=== PATIENT | female | born 1995 | race Caucasian/White ===

== ENCOUNTER 2018-01-15 19:04 | Inpatient (IN) ==
[2018-01-15] MEDS ORDERED: Acetaminophen 325 MG Tablet PO ONE (20:12)
[2018-01-15 21:06] LABS: Baso % (Auto) 0.4 % (0.0-2.0); Eos # (Auto) 0.3 th/mm3 (0.0-0.4); Eos % (Auto) 2.9 % (0.0-4.0); Hematocrit 30.9 % (35.0-46.0); Hemoglobin 10.8 gm/dL (11.6-15.3); Lymph # (Auto) 1.4 th/mm3 (1.0-4.8); Lymph % (Auto) 14.4 % (9.0-44.0); Mean Corpuscular HGB Conc 34.9 % (32.0-36.0); Mean Corpuscular Volume 89.1 fL (80.0-100.0); Mean Platelet Volume 8.2 fL (7.0-11.0); Mono # (Auto) 0.7 th/mm3 (0.0-0.9); Mono % (Auto) 7.1 % (0.0-8.0); Neut # (Auto) 7.4 th/mm3 (1.8-7.7); Neut % (Auto) 75.2 % (16.0-70.0); Platelet Count 200 th/mm3 (150-450); Red Blood Count 3.47 mil/mm3 (4.00-5.30); White Blood Count 9.9 th/mm3 (4.0-11.0)
[2018-01-15 21:34] LABS: Albumin 2.7 g/dL (3.4-5.0); Anion Gap 9 meq/L (5-15); Aspartate Aminotransferase 9 U/L (15-37); Blood Urea Nitrogen 10 mg/dL (7-18); Calcium 8.5 mg/dL (8.5-10.1); Carbon Dioxide 22.8 meq/L (21.0-32.0); Chloride 106 meq/L (98-107); Glomerular Filtration Rate Greater Than 89 mL/min (>89); Glucose,Random 82 mg/dL (74-106); Lipase 161 U/L (73-393); Potassium 3.5 meq/L (3.5-5.1); Sodium 138 meq/L (136-145)
[2018-01-15 21:40] LABS: Alanine Aminotransferase 11 U/L (10-53); Alkaline Phosphatase 100 U/L (45-117); Total Protein 6.6 g/dL (6.4-8.2)
--- NOTE | 2018-01-15 21:49 | US ---
EXAM DATE: 01/15/2018 9:44 PM EST AGE/SEX: 22 years / Female INDICATIONS: RUQ pain. CLINICAL DATA: This is the patient's initial encounter. Patient reports that signs and symptoms have been present for 1 day and indicates a pain score of 4/10. MEDICAL/SURGICAL HISTORY: . Tetralogy of fallot. . Open heart surgery. COMPARISON: OBD, US OB LIMITED W/TV, 12/01/2017. . MEASUREMENTS: Liver:__ 18.6 cm. Common Bile Duct:__ 4mm. FINDINGS: Liver: Normal echotexture without focal lesion or ductal dilatation. Portal Vein: Hepatopedal flow seen in portal vein. Common Duct: No intraluminal mass or stone visualized. Gallbladder: Demonstrates no wall thickening or pericholecystic fluid. No stones visualized. Pancreas: The visualized portions are within normal limits Right Kidney: Severe right-sided hydronephrosis. Other: None. CONCLUSION: 1. Severe right-sided hydronephrosis. 2. No sonographic evidence for cholelithiasis or acute cholecystitis. Electronically signed by: Angel Ch MD 01/15/2018 9:47 PM EST
[2018-01-15 23:49] LABS: Bacteria,Urine Rare /hpf; Bilirubin,Urine Negative (Negative); Clarity,Urine Hazy (Clear); Color,Urine Yellow (Yellw/Straw); Glucose,Urine (UA) Negative (Negative); Leukocyte Esterase,Urine Moderate (Negative); Mucus,Urine Few /lpf (Occasional); Nitrite,Urine Negative (Negative); Specific Gravity,Urine 1.013 (1.002-1.035); Squamous Epithelial Cell,Urine 5 /hpf (0-5)
[2018-01-16] MEDS ORDERED: Sod Chloride 0.9% Inj 1,000 ML IV.SIG SCH (00:30)
--- NOTE | 2018-01-16 00:51 | US ---
EXAM DATE: 01/16/2018 12:47 AM EST AGE/SEX: 22 years / Female INDICATIONS: Right flank pain. CLINICAL DATA: This is the patient's subsequent encounter. Patient reports that signs and symptoms h ave been present for 1 day and indicates a pain score of 3/10. MEDICAL/SURGICAL HISTORY: . Tetralogy of fallot. . Heart surgery. COMPARISON: No prior exams available for comparison. MEASUREMENTS: Right Kidney:__15.2 x 7.6 x 6.2 cm Left Kidney:__14.2 x 4.9 x 4.3 cm FINDINGS: Right Kidney: Normal echogenicity and cortical thickness. There is severe hydronephrosis. No mass is identified. Left Kidney: Normal echotexture and cortical thickness. No mass or hydronephrosis. Bladder: Within normal limits given the degree of distension. Other: Patient is currently with 28 weeks gestation. CONCLUSION: 1. Severe right hydronephrosis. This is more than typically seen with hydronephrosis associated with related to the gravid uterus impression on the right ureter. 2. Left kidney is within normal limits. Electronically signed by: Frederick Crawford MD 01/16/2018 12:50 AM EST
--- NOTE | 2018-01-16 01:25 | ED ---
HPI General Chief Complaint: Chest Pain Stated Complaint: 28 weeks / Chest pain Time Seen by Provider: 01/15/18 19:57 Source: patient Mode of arrival: ambulatory Limitations: no limitations History of Present Illness HPI narrative: 22-year-old female came to the emergency room with history of right upper quadrant pain radiating to the right side of her chest. Patient says the pain comes and goes and has been there for past 2 days. Pain was really worse today that made her come to the emergency room. Patient is 28 weeks . She is status post cardiac surgery from tetralogy of fellow in childhood. Patient is A0. No history of contractions, vaginal bleeding or spotting. No history of fever or chills. No history of coughing or hemoptysis. Vital signs were stable. Patient says her pain is 6 out of 10. No aggravating or relieving symptoms identified. Related Data Home Medications Medication Instructions Recorded Confirmed aspirin [Aspir-81] 81 mg PO DAILY 01/15/18 01/15/18 Allergies Allergy/AdvReac Type Severity Reaction Status Date / Time No Known Allergies Allergy Verified 01/15/18 19:40 Review of Systems ROS: all other systems reviewed are negative [facility] Medical History Medical History Tetralogy of Fallot (Acute) Surgical History Surgical History History of open heart surgery (Acute) Social History Social History Substance History: No History of Abuse Second Hand Smoke Exposure: No Smoking Status: Never smoker How Often Do You Have a Drink Containing Alcohol: Never Recent Travel in [facility] within the Last 8 Weeks: No Recent Out of Country Travel within the Last 8 Weeks: No Immunization History Tetanus Immunization: Unsure Exam Narrative Exam Narrative: GENERAL: Awake, alert, no obvious distress SKIN: Focused skin assessment warm/dry. HEAD: Atraumatic. Normocephalic. EYES: Pupils equal and round. No scleral icterus. No injection or drainage. ENT: No nasal bleeding or discharge. Mucous membranes pink and moist. NECK: Trachea midline. No JVD. CARDIOVASCULAR: Regular rate and rhythm. No murmur appreciated. RESPIRATORY: No accessory muscle use. Clear to auscultation. Breath sounds equal bilaterally. GASTROINTESTINAL: Abdomen soft, non-tender, nondistended. Gravid uterus. Hepatic and splenic margins not palpable. MUSCULOSKELETAL: No obvious deformities. No clubbing. No cyanosis. No edema. NEUROLOGICAL: Awake and alert. No obvious cranial nerve deficits. Motor grossly within normal limits. Normal speech. PSYCHIATRIC: Appropriate mood and affect; insight and judgment normal. Course Initial Documented Vital Signs Temperature 98.0 F 01/15/18 19:38 Pulse Rate 74 01/15/18 19:38 Respiratory Rate 16 01/15/18 19:38 Blood Pressure 125/60 01/15/18 19:38 Pulse Oximetry 99 01/15/18 19:38 Last Documented Vital Signs Temperature 98.0 F 01/15/18 19:38 Pulse Rate 68 01/15/18 21:30 Respiratory Rate 19 01/15/18 21:30 Blood Pressure 118/58 L 01/15/18 21:30 Pulse Oximetry 99 01/15/18 21:30 Medical Decision Making MDM Narrative Medical decision making narrative: 1:22 AM blood test results came back and within acceptable limits. Troponin was negative. UA is negative. Gallbladder ultrasound was negative for gallbladder stones but there was an incidental finding of severe right sided hydronephrosis. Based on this a renal ultrasound was ordered. Given the fact that patient's pain is on the right side as the ultrasound abnormal findings I discussed the case with the OB hospitalist Dr. De Santiago was accepted the admission. I discussed the case with urology on-call Dr. Figueroa who will consult on the patient. Patient has been informed about her test results and the plan. She is okay with the admission. Medical Screen Exam Complete: Yes Emergency Medical Condition: Yes Lab Data Result diagrams: 01/15/18 20:45 01/15/18 20:45 Lab Results 01/15/18 01/15/18 01/15/18 Range/Units 20:45 20:45 20:45 WBC 9.9 (4.0-11.0) th/mm3 RBC 3.47 L (4.00-5.30) mil/mm3 Hgb 10.8 L (11.6-15.3) gm/dL Hct 30.9 L (35.0-46.0) % MCV 89.1 (80.0-100.0) fL MCH 31.0 (27.0-34.0) pg MCHC 34.9 (32.0-36.0) % RDW 13.0 (11.6-17.2) % Plt Count 200 (150-450) th/mm3 MPV 8.2 (7.0-11.0) fL Neut % (Auto) 75.2 H (16.0-70.0) % Lymph % (Auto) 14.4 (9.0-44.0) % [place] % (Auto) 7.1 (0.0-8.0) % Eos % (Auto) 2.9 (0.0-4.0) % Baso % (Auto) 0.4 (0.0-2.0) % Neut # (Auto) 7.4 (1.8-7.7) th/mm3 Lymph # (Auto) 1.4 (1.0-4.8) th/mm3 [place] # (Auto) 0.7 (0.0-0.9) th/mm3 Eos # (Auto) 0.3 (0.0-0.4) th/mm3 Baso # (Auto) 0.0 (0.0-0.2) th/mm3 WBC Differential . Differential Comment Auto diff final Sodium 138 (136-145) meq/L Potassium 3.5 (3.5-5.1) meq/L Chloride 106 (98-107) meq/L Carbon Dioxide 22.8 (21.0-32.0) meq/L Anion Gap 9 (5-15) meq/L BUN 10 (7-18) mg/dL Creatinine 0.59 (0.50-1.00) mg/dL Estimated GFR Greater than 89 (>89) mL/min Random Glucose 82 (74-106) mg/dL Calcium 8.5 (8.5-10.1) mg/dL Total Bilirubin 0.2 (0.2-1.0) mg/dL AST 9 L (15-37) U/L ALT 11 (10-53) U/L Alkaline Phosphatase 100 (45-117) U/L Troponin I Less than 0.02 L (0.02-0.05) ng/mL Total Protein 6.6 (6.4-8.2) g/dL Albumin 2.7 L (3.4-5.0) g/dL Lipase 161 (73-393) U/L Urine Color Yellow (Yellw/Straw) Urine Clarity Hazy H (Clear) Urine pH 6.0 (5.0-8.5) Ur Specific [place] 1.013 (1.002-1.035) Urine Protein Negative (Neg-Trace) mg/dL Urine Glucose (UA) Negative (Negative) mg/dL Urine Ketones Negative (Negative) mg/dL Urine Occult Blood Negative (Negative) Urine Nitrate Negative (Negative) Urine Bilirubin Negative (Negative) Urine Urobilinogen Less than 2 (Less than 2) mg/dL Ur Leukocyte Esterase Moderate H (Negative) Urine RBC 1 (0-3) /hpf Urine WBC 6 H (0-5) /hpf Ur Squamous Epith Cells 5 (0-5) /hpf Urine Bacteria Rare H (None) /hpf Urine Mucus Few H (Occasional) /lpf Micro UA Comment Culture not ind Ur Microscopic Review Not Reportable Urine Culture Comments Culture not ind Imaging Data Radiologist's impression: Gallbladder Ultrasound 01/15/18 20:12 CONCLUSION: 1. Severe right-sided hydronephrosis. 2. No sonographic evidence for cholelithiasis or acute cholecystitis. Abdomen/Bladder Ultrasound 01/16/18 00:23 CONCLUSION: 1. Severe right hydronephrosis. This is more than typically seen with hydronephrosis associated with related to the gravid uterus impression on the right ureter. 2. Left kidney is within normal limits. ECG Data EKG Prior to Arrival: Yes Attestation: I personally reviewed and interpreted this ECG as follows: Prior ECG tracings: available for review Interpretation: Twelve-lead EKG was reviewed by me. Normal sinus rhythm, right branch block, unchanged from last EKG. Heart rate of 69 bpm. Discharge Plan Discharge Disposition Patient Disposition: 30 Still Patient Physicians Team ED Provider: Summer Easton Primary Care Provider: Primary Care Valerioi,Monse Attending Provider: Raghav Crook Discharge Interventions Interventions: Vital Signs Last Done: 01/15/18 19:40 Status ED Status: Admitted Patient
[2018-01-16] MEDS ORDERED: Sodium Chloride 0.9% 2 ML Flush PRN IV.FLUSH (03:52)
[2018-01-16] MEDS: Acetaminophen 325 MG Tablet PO PRN ×2 (04:00→20:32)
[2018-01-16] MEDS: Sodium Chloride 0.9% 2 ML Flush BID IV.FLUSH SCH ×2 (05:04→14:20)
[2018-01-16] MEDS ORDERED: Acetaminophen 325 MG Tablet PO PRN (08:09)
[2018-01-16] MEDS ORDERED: Ondansetron Inj 8 MG in Sodium Chlor 0.9% Inj 50 ML IV.SIG ONE (09:00)
--- NOTE | 2018-01-16 09:24 | P.HPIM ---
History of Present Illness Primary Care Physician: No Primary Care Physician History of Present Illness: This patient is a 22-year-old female with a history of tetrology of fallot, A0 who presented to the emergency department with complaints of right upper quadrant pain with radiation to the chest. Patients pain had been ongoing since Wednesday afternoon. The patient had dinner and then her symptoms began to get worse. She denied any episodes of vomiting, felt some nausea after eating. She was evaluated in the ED and was found to have severe right sided hydronephrosis. Patient denies diarrhea, no shortness of breath, no other complaints. 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 Family history noncontributory. Inpatient Certification: I certify that the inpatient services were ordered in accordance with Medicare regulations governing the order. This includes certification that hospital inpatient services are reasonable and necessary and in the case of services not specified as inpatient-only under 42 CFR 419.22(n), that they are appropriately provided as inpatient services in accordance to with the 2-midnight benchmark under 43 CFR 412.3(e) Review of Systems All other systems reviewed negative except as stated in HPI PMFSH - History History Provided By: Patient - Medical History Medical History: Medical History (Last Reviewed 01/16/18 @ 01:22 by Summer Easton MD) Tetralogy of Fallot - Surgical History Surgical History: Surgical History (Last Reviewed 01/16/18 @ 01:22 by Summer Easton MD) History of open heart surgery - Tobacco History Second Hand Smoke Exposure: No Smoking Status: Never smoker - Alcohol History How Often Do You Have a Drink Containing Alcohol: Never - Substance Use History Substance History: No History of Abuse - Travel History Recent Travel in the [place] Within the Last 8 Weeks: No Recent Travel Out of the Country Within the Last 8 Weeks: No - Immunization History Tetanus Immunization: Unsure Medications and Allergies Active Medications: Active Medications Acetaminophen (Tylenol) 650 mg PO Q4H PRN PRN Reason: HEADACHE/PAIN Last Admin: 01/16/18 04:00 Dose: 650 mg Acetaminophen (Tylenol) 650 mg PO Q4H PRN PRN Reason: FEVER Sodium Chloride (Ns Flush) 2 ml IV.FLUSH BID DONATO Last Admin: 01/16/18 05:04 Dose: 2 ml Sodium Chloride (Ns Flush) 2 ml IV.FLUSH PRN PRN PRN Reason: FLUSH AFTER USING IV ACCESS Allergies Allergy/AdvReac Type Severity Reaction Status Date / Time No Known Allergies Allergy Verified 01/15/18 19:40 Home Medications Medication Instructions Recorded Confirmed Type aspirin [Aspir-81] 81 mg PO DAILY 01/15/18 01/15/18 History Exam Vital signs: Vital Signs 01/15/18 19:38 01/15/18 19:40 01/15/18 21:30 Temperature 98.0 F Pulse Rate 74 69 68 Respiratory Rate 16 16 19 Blood Pressure 125/60 118/58 L 118/58 L Pulse Oximetry 99 99 97 01/16/18 02:38 01/16/18 03:30 Temperature 98.3 F Pulse Rate 70 Respiratory Rate 18 18 Blood Pressure 130/59 L Pulse Oximetry Intake & Output 01/15/18 01/16/18 01/16/18 18:59 06:59 18:59 Intake Total 1000 / 1000 Balance 1000 / 1000 Weight 68.039 kg Intake: IV 1000 / 1000 NS Inj 1,000 ML @ 1000 mls/hr 1000 / 1000 IV.SIG BOLUS ON LICENSE OF [facility] Rx#:[id number] Narrative: General patient in no acute distress currently HEENT extraocular movements are intact, clear oropharyngeal mucosa, no JVD Cardiovascular S1-S2 audible, 2 out of 6 systolic ejection murmur auscultated. Respiratory clear to auscultation bilaterally Abdomen soft, nontender, nondistended, normal bowel sounds Extremities no edema 2+ distal pulses in bilateral upper and lower extremities Neuro cranial nerves II through XII intact Results - Labs CBC & Chem 7: 01/15/18 20:45 01/15/18 20:45 Labs: Short CBC 01/15/18 Range/Units 20:45 WBC 9.9 (4.0-11.0) th/mm3 Hgb 10.8 L (11.6-15.3) gm/dL Hct 30.9 L (35.0-46.0) % Plt Count 200 (150-450) th/mm3 BMP 01/15/18 20:45 Sodium 138 Potassium 3.5 Chloride 106 Carbon Dioxide 22.8 BUN 10 Creatinine 0.59 Calcium 8.5 Cardiac Enzymes 01/15/18 Range/Units 20:45 Troponin I Less than 0.02 L (0.02-0.05) ng/mL Liver Function 01/15/18 Range/Units 20:45 Total Bilirubin 0.2 (0.2-1.0) mg/dL AST 9 L (15-37) U/L ALT 11 (10-53) U/L Alkaline Phosphatase 100 (45-117) U/L Albumin 2.7 L (3.4-5.0) g/dL Urine 01/15/18 Range/Units 20:45 Urine Color Yellow (Yellw/Straw) Urine Clarity Hazy H (Clear) Urine pH 6.0 (5.0-8.5) Ur Specific [place] 1.013 (1.002-1.035) Urine Protein Negative (Neg-Trace) mg/dL Urine Glucose (UA) Negative (Negative) mg/dL - Imaging Impressions Gallbladder Ultrasound 01/15/18 20:12 CONCLUSION: 1. Severe right-sided hydronephrosis. 2. No sonographic evidence for cholelithiasis or acute cholecystitis. Abdomen/Bladder Ultrasound 01/16/18 00:23 CONCLUSION: 1. Severe right hydronephrosis. This is more than typically seen with hydronephrosis associated with related to the gravid uterus impression on the right ureter. 2. Left kidney is within normal limits. Caprini VTE Risk Assessment Caprini VTE Risk Assessment: No/Low Risk (score <= 1) Caprini Risk Assessment Model: Point Value = 1 Point Value = 2 Point Value = 3 Point Value = 5 Age 41-60 Minor surgery BMI > 25 kg/m2 Swollen legs Varicose veins or History of unexplained or recurrent spontaneous Oral contraceptives or hormone replacement Sepsis (< 1 month) Serious lung disease, including pneumonia (< 1 month) Abnormal pulmonary function Acute myocardial infarction Congestive heart failure (< 1 month) History of inflammatory bowel disease Medical patient at bed rest Age 61-74 Arthroscopic surgery Major open surgery (> 45 min) Laparoscopic surgery (> 45 min) Malignancy Confined to bed (> 72 hours) Immobilizing plaster cast Central venous access Age >= 75 History of VTE Family history of VTE Factor V Leiden Prothrombin [id number] Lupus anticoagulant Anticardiolipin antibodies Elevated serum homocysteine Heparin-induced thrombocytopenia Other congenital or acquired thrombophilia Stroke (< 1 month) Elective arthroplasty Hip, pelvis, or leg fracture Acute spinal cord injury (< 1 month) Prophylaxis Regimen: Total Risk Factor Score Risk Level Prophylaxis Regimen 0-1 Low Early ambulation 2 Moderate Order ONE of the following: *Sequential Compression Device (SCD) *Heparin 5000 units SQ BID 3-4 Higher Order ONE of the following medications: *Heparin 5000 units SQ TID *Enoxaparin/Lovenox 40 mg SQ daily (WT < 150 kg, CrCl > 30 mL/min) *Enoxaparin/Lovenox 30 mg SQ daily (WT < 150 kg, CrCl > 10-29 mL/min) *Enoxaparin/Lovenox 30 mg SQ BID (WT < 150 kg, CrCl > 30 mL/min) AND/OR *Sequential Compression Device (SCD) 5 or more Highest Order ONE of the following medications: *Heparin 5000 units SQ TID (Preferred with Epidurals) *Enoxaparin/Lovenox 40 mg SQ daily (WT < 150 kg, CrCl > 30 mL/min) *Enoxaparin/Lovenox 30 mg SQ daily (WT < 150 kg, CrCl > 10-29 mL/min) *Enoxaparin/Lovenox 30 mg SQ BID (WT < 150 kg, CrCl > 30 mL/min) AND *Sequential Compression Device (SCD) Assessment and Plan - Plan This patient is a 22-year-old female with a history of tetrology of fallot, A0 who presented to the emergency department with complaints of right upper quadrant pain with radiation to the chest. Patients pain had been ongoing since Wednesday afternoon. The patient had dinner and then her symptoms began to get worse. She denied any episodes of vomiting, felt some nausea after eating. She was evaluated in the ED and was found to have severe right sided hydronephrosis. 1. Right upper quadrant pain with severe right-sided hydronephrosis Patient afebrile, labs show normal WBC count. EKG shows right bundle branch block, troponin negative. Lipase normal. Ultrasound gallbladder is negative. Ultrasound of the abdomen shows severe right-sided hydronephrosis. Urology has been consulted to evaluate the patient, their evaluation is currently pending. I will follow-up with the recognitions. OB is also following the case. Tylenol as needed for pain, will adjust her pain medications as needed. 2. Urinary tract infection UA positive Patient started on Rocephin. We will follow-up cultures. 3. 28-week OB following. We will follow-up with the recommendations. SCDs for DVT prophylaxis as the patient may need surgical intervention today.
--- NOTE | 2018-01-16 10:22 | P.CONOB ---
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 Patient's pain began Miguel afternoon and was mild until after the patient had dinner and then her symptoms began to worsen acutely. She denied any episodes of vomiting, felt some nausea after eating. Pain is somewhat alleviated by lying on her left side and worsened by lying on her right side. Her first two pregnancies were delivered at term without complications; however, her third was complicated by chest pain and subsequently required delivery at 35 weeks. She was evaluated in the ED and US of abdomen found no gallbladder pathology but did find severe right-sided hydronephrosis. Patient denies diarrhea, no shortness of breath, no other complaints.Pt denies tobacco, EtOH and other drugs. She is due to be followed at [facility] [employer] as high risk starting next week. Her cutter machine is also at [facility] in [place]. She takes a PNV and daily ASA. She denies SOB, dysuria and leg pain. 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 Family history noncontributory. Weeks Gestation:: 27 Para: 3 : 4 Total # of Miscarriage(s): 0 Total # of Abortions (Spontaneous & Elective): 0 Review of Systems Constitutional: Denies chills, Denies fever(s), Denies headache(s) Eyes: Denies change in vision Cardiovascular: Reports chest pain (right sided), Reports chest pain at rest, Denies lightheadedness, Denies shortness of breath Respiratory: Denies shortness of breath Gastrointestinal: Reports abdominal pain (RUQ), Denies loose stools, Denies nausea, Denies vomiting Genitourinary: Denies painful urination Musculoskeletal: Reports back pain (right lumber and right shoulder blade) Skin/Breast: Denies lesions, Denies rash Neurologic: Denies dizziness PMFSH - History History Provided By: Patient - Medical History Medical History: Medical History (Last Reviewed 01/16/18 @ 01:22 by Summer Easton MD) Tetralogy of Fallot - Surgical History Surgical History: Surgical History (Last Reviewed 01/16/18 @ 01:22 by Summer Easton MD) History of open heart surgery - Family History Family History: Family History (Last Updated 01/16/18 @ 10:33 by Olvin Fields III, MD, R2) Other Family history non-contributory - Social History I have reviewed the patient's Social History: Yes - Tobacco History Second Hand Smoke Exposure: No Smoking Status: Never smoker - Alcohol History How Often Do You Have a Drink Containing Alcohol: Never - Substance Use History Substance History: No History of Abuse - Travel History Recent Travel in the [place] Within the Last 8 Weeks: No Recent Travel Out of the Country Within the Last 8 Weeks: No - Immunization History Tetanus Immunization: Unsure Medications and Allergies Active Medications: Active Medications Acetaminophen (Tylenol) 650 mg PO Q4H PRN PRN Reason: HEADACHE/PAIN Last Admin: 01/16/18 04:00 Dose: 650 mg Acetaminophen (Tylenol) 650 mg PO Q4H PRN PRN Reason: FEVER Aspirin (Aspirin Chew) 81 mg PO DAILY DONATO Ondansetron HCl (Zofran Inj) 4 mg IV.PUSH Q6H PRN PRN Reason: nausea and/or vomiting Sodium Chloride (Ns Flush) 2 ml IV.FLUSH BID DONATO Last Admin: 01/16/18 05:04 Dose: 2 ml Sodium Chloride (Ns Flush) 2 ml IV.FLUSH PRN PRN PRN Reason: FLUSH AFTER USING IV ACCESS Allergies Allergy/AdvReac Type Severity Reaction Status Date / Time No Known Allergies Allergy Verified 01/15/18 19:40 Home Medications Medication Instructions Recorded Confirmed Type aspirin [Aspir-81] 81 mg PO DAILY 01/15/18 01/15/18 History Exam Vital signs: Vital Signs 01/15/18 19:38 01/15/18 19:40 01/15/18 21:30 Temperature 98.0 F Pulse Rate 74 69 68 Respiratory Rate 16 16 19 Blood Pressure 125/60 118/58 L 118/58 L Pulse Oximetry 99 99 97 01/16/18 02:38 01/16/18 03:30 01/16/18 09:30 Temperature 98.3 F 97.6 F Pulse Rate 70 84 Respiratory Rate 18 18 18 Blood Pressure 130/59 L 109/62 Pulse Oximetry Intake & Output 01/15/18 01/16/18 01/16/18 18:59 06:59 18:59 Intake Total 1000 / 1000 Balance 1000 / 1000 Weight 68.039 kg Intake: IV 1000 / 1000 NS Inj 1,000 ML @ 1000 mls/hr 1000 / 1000 IV.SIG BOLUS DONATO Rx#:[id number] Narrative: GENERAL: Well-nourished, well-developed patient. SKIN: Warm and dry. HEAD: Normocephalic and atraumatic. EYES: No scleral icterus. No injection or drainage. ENT: No nasal drainage noted. Mucous membranes pink. Airway patent. NECK: Supple, trachea midline. No JVD. CARDIOVASCULAR: Regular rate and rhythm without murmurs, gallops, or rubs. CHEST: Midline surgical scar over the sternum well healed. Anterior pain felt to upper right sternum not reproducible by palpation; posterior chest with pain felt at right scapula and right lumbar segment. RESPIRATORY: Breath sounds equal bilaterally. No accessory muscle use. ABDOMEN/GI: Abdomen soft, gravid, non-TTP, bowel sounds present, no rebound, no guarding Gravid to 27 weeks size Fundal Height: [-] GENITOURINARY: Cervix: [-] Dilatation: [-] Effacement: [-] Station: [-] Presentation: [-] Membranes: intact Uterine Contractions: absent FHT's: Category: [-] Baseline: [-] Reactive: [-] Variability: [-] Decels: [-] EXTREMITIES: No cyanosis or edema. BACK: Nontender without obvious deformity. No CVA tenderness. NEUROLOGICAL: Awake and alert. Motor and sensory grossly within normal limits. Five out of 5 muscle strength in all muscle groups. Normal speech. Results - Labs CBC & Chem 7: 01/15/18 20:45 01/15/18 20:45 Labs: Laboratory Results - last 24 hr 01/15/18 01/15/18 01/15/18 20:45 20:45 20:45 WBC 9.9 RBC 3.47 L Hgb 10.8 L Hct 30.9 L MCV 89.1 MCH 31.0 MCHC 34.9 RDW 13.0 Plt Count 200 MPV 8.2 Neut % (Auto) 75.2 H Lymph % (Auto) 14.4 [place] % (Auto) 7.1 Eos % (Auto) 2.9 Baso % (Auto) 0.4 Neut # (Auto) 7.4 Lymph # (Auto) 1.4 [place] # (Auto) 0.7 Eos # (Auto) 0.3 Baso # (Auto) 0.0 WBC Differential . Differential Comment Auto diff final Sodium 138 Potassium 3.5 Chloride 106 Carbon Dioxide 22.8 Anion Gap 9 BUN 10 Creatinine 0.59 Estimated GFR Greater than 89 Random Glucose 82 Calcium 8.5 Total Bilirubin 0.2 AST 9 L ALT 11 Alkaline Phosphatase 100 Troponin I Less than 0.02 L Total Protein 6.6 Albumin 2.7 L Lipase 161 Urine Color Yellow Urine Clarity Hazy H Urine pH 6.0 Ur Specific [place] 1.013 Urine Protein Negative Urine Glucose (UA) Negative Urine Ketones Negative Urine Occult Blood Negative Urine Nitrate Negative Urine Bilirubin Negative Urine Urobilinogen Less than 2 Ur Leukocyte Esterase Moderate H Urine RBC 1 Urine WBC 6 H Ur Squamous Epith Cells 5 Urine Bacteria Rare H Urine Mucus Few H Micro UA Comment Culture not ind Ur Microscopic Review Not Reportable Urine Culture Comments Culture not ind - Imaging Impressions Gallbladder Ultrasound 01/15/18 20:12 CONCLUSION: 1. Severe right-sided hydronephrosis. 2. No sonographic evidence for cholelithiasis or acute cholecystitis. Abdomen/Bladder Ultrasound 01/16/18 00:23 CONCLUSION: 1. Severe right hydronephrosis. This is more than typically seen with hydronephrosis associated with related to the gravid uterus impression on the right ureter. 2. Left kidney is within normal limits. Assessment and Plan - Diagnosis (1) Hydronephrosis Code(s): N13.30 - Unspecified hydronephrosis Status: Acute Plan: Urology consulted--Dr Figueroa--appreciate arnie Mar as per hospitalist (2) Third trimester Code(s): Z34.93 - Encounter for supervision of normal , unspecified, third trimester Status: Acute Plan: 22 YO at 27/3 weeks with roberts and Hx of Tetralogy of Fallot s/p several cardiac surgeries to correct p/w/ severe hydronephrosis. [employer] is consulted to assist in management of this complicated . There is no VB , LOF, CTX, but there is good movement. 1. Routine care --Pain control with tylenol PRN --Zofran PRN for nausea/vomiting --Monitor FHTs PRN --Diet as per primary team --Appreciate urology recs --We will follow with with primary team to aid in management as necessary Pt SDW Eric Crook and Lb - Plan Thank you for consulting the OB Hospitalist service to aid in the care of this patient.
--- NOTE | 2018-01-16 13:04 | ECG ---
Date Performed: 01/15/2018 Time Performed: 19:47:16 PTAGE: 22 years EKG: Sinus rhythm POSSIBLE LEFT ATRIAL ENLARGEMENT RIGHT BUNDLE BRANCH BLOCK INFERIOR MYOCARDIAL INFARCTION ABNORMAL E CG Since the PREVIOUS TRACING , no significant change noted PREVIOUS TRACIN11/19/2015 16.16 DOCTOR: Cuauhtemoc Cruz Interpretating Date/Time 01/16/2018 13:00:04
[2018-01-17] MEDS: Sodium Chloride 0.9% 2 ML Flush BID IV.FLUSH SCH ×2 (06:39→10:52)
--- NOTE | 2018-01-17 10:02 | P.PNIM ---
Subjective Interval history: Some pain remains, however, interval improvement in pain is present today. Patient reports a lower anterior chest pain as well as a right sided flank pain. Workup is negative thus far. Urology evaluation pending. Physical Exam Vital signs: Last Vital Signs Temp 97.7 F 01/16/18 23:15 Pulse 70 01/17/18 08:54 Resp 18 01/17/18 08:45 BP 122/50 L 01/17/18 08:54 Pulse Ox 99 01/15/18 21:30 Intake & Output 01/15/18 01/16/18 01/17/18 01/18/18 06:59 06:59 06:59 06:59 Intake Total 1000 / 1000 Balance 1000 / 1000 Weight 68.039 kg Narrative: GENERAL: NAD, A&Ox3 HEAD: Normocephalic. NECK: Supple, trachea midline. No lymphadenopathy. EYES: No scleral icterus. No injection or drainage. CARDIOVASCULAR: Regular rate and rhythm without murmurs, gallops, or rubs. RESPIRATORY: Breath sounds equal bilaterally. No accessory muscle use. GASTROINTESTINAL: Abdomen soft, non-tender, nondistended. MUSCULOSKELETAL: No cyanosis, or edema. SKIN: Warm and dry. NEURO: No focal neurological deficits. Results Labs CBC & Chem 7: 01/15/18 20:45 01/15/18 20:45 Assessment and Plan (1) Hydronephrosis: Code(s): N13.30 - Unspecified hydronephrosis Status: Acute (2) Third trimester : Code(s): Z34.93 - Encounter for supervision of normal , unspecified, third trimester Status: Acute Plan 22-year-old female with a history of tetrology of fallot, A0 who presented to the emergency department with complaints of right upper quadrant pain with radiation to the chest. Right flank pain Right upper quadrant pain Chest pain Right side hydronephrosis Mild to moderate asymptomatic right hydronephrosis would not be abnormal in some improvement in pain compared to admit No signs of infection Continue to monitor renal function No signs of pancreatitis Urology consulted [facility] following Tylenol for pain Urinary tract infection Continue Rocephin Follow cultures 28 weeks [facility] following Continue routine care DVT prophylaxis SCDs _ (1) Hydronephrosis Qualifiers: Hydronephrosis type:
--- NOTE | 2018-01-17 10:33 | P.OBANTE ---
Subjective Interval History: Pt feeling well this morning. Still complains of mild RUQ abdominal pain, R chest pain, and back pain. Will continue with care in [place] where they have all her cardiology records. She denies any other type of chest pain or shortness of breath. She denies any urinary symptoms, no dysuria, urgency or frequency other than related ones. + Fm, No CTX, no LOF, no VB Antepartum ROS: Reports: movement normal Denies: New complaints, Loss of fluid, Vaginal bleeding, Contractions Objective Vital Signs and I&O: Vital Signs 01/16/18 12:31 01/16/18 16:23 01/16/18 19:25 Temperature 97.5 F L 97.7 F Pulse Rate 82 79 Respiratory Rate 18 18 Blood Pressure 108/43 L 121/53 L 124/50 L 01/16/18 19:27 01/16/18 21:15 01/16/18 23:15 Temperature 97.4 F L 97.7 F Pulse Rate 84 75 Respiratory Rate 18 2 L 18 Blood Pressure 117/48 L 01/17/18 08:45 01/17/18 08:54 Temperature Pulse Rate 70 Respiratory Rate 18 Blood Pressure 122/50 L Physical Exam: GENERAL: Well-nourished, well-developed patient. CARDIOVASCULAR: Systolic murmur appreciated. Regular rate and rhythm RESPIRATORY: Breath sounds equal bilaterally. No accessory muscle use. ABDOMEN/GI: Gravid. Abdomen soft, non-tender. EXTREMITIES: No cyanosis or edema, non-tender, without signs of DVT. Assessment and Plan - Diagnosis (1) Hydronephrosis Code(s): N13.30 - Unspecified hydronephrosis Status: Acute Plan: Urology consulted--Dr Figueroa--appreciate arnie Mar as per hospitalist (2) Third trimester Code(s): Z34.93 - Encounter for supervision of normal , unspecified, third trimester Status: Acute Plan: 22 YO at 27/3 weeks with roberts and Hx of Tetralogy of Fallot s/p several cardiac surgeries to correct p/w/ severe hydronephrosis. [employer] is consulted to assist in management of this complicated . There is no VB , LOF, CTX, but there is good movement. 1. Routine care --Pain control with tylenol PRN --Zofran PRN for nausea/vomiting --Monitor FHTs PRN --Diet as per primary team --Appreciate urology recs --We will follow with with primary team to aid in management as necessary Pt SDW Eric Crook and Lb (3) UTI (urinary tract infection) during Code(s): O23.40 - Unspecified infection of urinary tract in , unspecified trimester Status: Acute - Plan 22 YO at 27/4 weeks with roberts and Hx of Tetralogy of Fallot s/p several cardiac surgeries to correct p/w/ severe hydronephrosis. [employer] is consulted to assist in management of this complicated . There is no VB , LOF, CTX, Good movement. 1. Routine care --Pain control with tylenol PRN --Zofran PRN for nausea/vomiting --Monitor FHTs PRN --Diet as per primary team --Appreciate urology recs --We will follow with with primary team to aid in management as necessary 2. UTI -- Will obtain a new UA w/ C&S -- Rocephin IV 1gr q24 hr -- Repeat UA at follow up OB visit Pt discussed with Dr. Weiss. Thank you for consulting the OB Hospitalist service to aid in the care of this patient.
[2018-01-17 11:31] LABS: Alanine Aminotransferase 11 U/L (10-53); Albumin 2.6 g/dL (3.4-5.0); Anion Gap 6 meq/L (5-15); Aspartate Aminotransferase 8 U/L (15-37); Blood Urea Nitrogen 7 mg/dL (7-18); Calcium 8.2 mg/dL (8.5-10.1); Carbon Dioxide 24.6 meq/L (21.0-32.0); Chloride 110 meq/L (98-107); Glomerular Filtration Rate Greater Than 89 mL/min (>89); Glucose,Random 79 mg/dL (74-106); Potassium 3.9 meq/L (3.5-5.1); Sodium 141 meq/L (136-145)
[2018-01-17 11:34] LABS: Alkaline Phosphatase 97 U/L (45-117); Total Protein 6.5 g/dL (6.4-8.2)
[2018-01-17 11:40] LABS: Bacteria,Urine Few /hpf; Bilirubin,Urine Negative (Negative); Clarity,Urine Hazy (Clear); Color,Urine Yellow (Yellw/Straw); Glucose,Urine (UA) Negative (Negative); Leukocyte Esterase,Urine Large (Negative); Mucus,Urine Few /lpf (Occasional); Nitrite,Urine Negative (Negative); Specific Gravity,Urine 1.006 (1.002-1.035); Squamous Epithelial Cell,Urine 11 /hpf (0-5)
[2018-01-17] MEDS ORDERED: ceFAZolin 1 GM Premix Inj 1 GM/50 ML FROZ.PIGGY IV.SIG ONE (12:00)
--- NOTE | 2018-01-17 13:32 | P.CONURO ---
History of Present Illness Service: urology Consult date: 01/17/18 Requesting Physician: Raghav Crook Reason for Consult: hydronephrosis Primary Care Provider: No Primary Care Physician Chief Complaint: chest pain History of Present Illness: This patient is a 22-year-old female with a history of tetrology of fallot, A0 who presented to the emergency department with complaints of right upper quadrant pain with radiation to the chest. Patients pain had been ongoing since Wednesday afternoon. The patient had dinner and then her symptoms began to get worse. She denied any episodes of vomiting, felt some nausea after eating. She was evaluated in the ED and was found to have severe right sided hydronephrosis. Patient denies diarrhea, no shortness of breath, no other complaints. Urology consulted No f/c/n/v, no hematuria. labs are stable. Her main c/o is chest pain. she admits right flank mild intermittent pain as well. No previous history, no recurrent UTIs or renal stones in the past Review of Systems All other systems reviewed negative except as stated in HPI PMFSH - History History Provided By: Patient - Medical History Medical History: Medical History (Last Reviewed 01/16/18 @ 01:22 by Summer Easton MD) Tetralogy of Fallot - Surgical History Surgical History: Surgical History (Last Reviewed 01/16/18 @ 01:22 by Summer Easton MD) History of open heart surgery - Family History Family History: Family History (Last Updated 01/16/18 @ 10:33 by Olvin Fields III, MD, R2) Other Family history non-contributory - Tobacco History Second Hand Smoke Exposure: No Smoking Status: Never smoker - Alcohol History How Often Do You Have a Drink Containing Alcohol: Never - Substance Use History Substance History: No History of Abuse - Travel History Recent Travel in the [place] Within the Last 8 Weeks: No Recent Travel Out of the Country Within the Last 8 Weeks: No - Immunization History Tetanus Immunization: Unsure Medications and Allergies Active Medications: Active Medications Acetaminophen (Tylenol) 650 mg PO Q4H PRN PRN Reason: HEADACHE/PAIN Last Admin: 01/16/18 20:32 Dose: 650 mg Acetaminophen (Tylenol) 650 mg PO Q4H PRN PRN Reason: FEVER Aspirin (Aspirin Chew) 81 mg PO DAILY DONATO Last Admin: 01/17/18 08:20 Dose: 81 mg Ondansetron HCl (Zofran Inj) 4 mg IV.PUSH Q6H PRN PRN Reason: nausea and/or vomiting Pantoprazole Sodium (Protonix) 40 mg PO DAILY [facility] Last Admin: 01/17/18 08:20 Dose: 40 mg Sodium Chloride (Ns Flush) 2 ml IV.FLUSH BID [facility] Last Admin: 01/17/18 10:52 Dose: 2 ml Sodium Chloride (Ns Flush) 2 ml IV.FLUSH PRN PRN PRN Reason: FLUSH AFTER USING IV ACCESS Allergies Allergy/AdvReac Type Severity Reaction Status Date / Time No Known Allergies Allergy Verified 01/15/18 19:40 Home Medications Medication Instructions Recorded Confirmed Type aspirin [Aspir-81] 81 mg PO DAILY 01/15/18 01/15/18 History Physical Exam Vital Signs - 24 hr 01/16/18 16:23 01/16/18 19:25 01/16/18 19:27 Temperature 97.7 F 97.4 F L Pulse Rate 79 84 Respiratory Rate 18 18 Blood Pressure 121/53 L 124/50 L 01/16/18 21:15 01/16/18 23:15 01/17/18 08:45 Temperature 97.7 F Pulse Rate 75 Respiratory Rate 2 L 18 18 Blood Pressure 117/48 L 01/17/18 08:54 Temperature Pulse Rate 70 Respiratory Rate Blood Pressure 122/50 L Physical Exam: NAD RRR Clear lungs . Laboratory Results - last 24 hr 01/17/18 01/17/18 10:33 10:50 Sodium 141 Potassium 3.9 Chloride 110 H Carbon Dioxide 24.6 Anion Gap 6 BUN 7 Creatinine 0.56 Estimated GFR Greater than 89 Random Glucose 79 Calcium 8.2 L Total Bilirubin 0.1 L AST 8 L ALT 11 Alkaline Phosphatase 97 Total Protein 6.5 Albumin 2.6 L Urine Color Yellow Urine Clarity Hazy H Urine pH 7.0 Ur Specific [place] 1.006 Urine Protein Negative Urine Glucose (UA) Negative Urine Ketones Negative Urine Occult Blood Negative Urine Nitrate Negative Urine Bilirubin Negative Urine Urobilinogen Less than 2 Ur Leukocyte Esterase Large H Urine RBC Less than 1 Urine WBC 61 H Ur Squamous Epith Cells 11 Urine Bacteria Few H Urine Mucus Few H Micro UA Comment Culture indicated Ur Microscopic Review Not Reportable Urine Culture Comments Culture indicated Result Diagrams: 01/15/18 20:45 01/17/18 10:33 Imaging: ITS Impressions Gallbladder Ultrasound 01/15/18 20:12 CONCLUSION: 1. Severe right-sided hydronephrosis. 2. No sonographic evidence for cholelithiasis or acute cholecystitis. Abdomen/Bladder Ultrasound 01/16/18 00:23 CONCLUSION: 1. Severe right hydronephrosis. This is more than typically seen with hydronephrosis associated with related to the gravid uterus impression on the right ureter. 2. Left kidney is within normal limits. Assessment and Plan - Plan 22y.o F with history as per [facility] Urology consulted for severe right hydronephrosis - Continue care as per primary team - No acute intervention needed - Her Cr is normal - Rt Mora is most likely related to her . Renal/ureetral stones are not excluded but can't definitely be confirmed without CT scan. Also she has no classic renal colic symptoms - If she will have recurrent constant right flank pain which is getting worse or recurrent UTIs while she will benefit from right nephrostomy placement by IR She will need to see a after delivery to evaluate for resolution of hydro Discussed Condition With: Dr Henry ORELLANA attending
[2018-01-17] MEDS: Acetaminophen 325 MG Tablet PO PRN (14:08)
--- NOTE | 2018-01-17 16:21 | P.DS ---
DS: Providers Date of admission: 01/16/18 01:04 Primary care physician: No Primary Care Physician Consults: 01/16/18 08:07 Consult to Hospitalist Routine Consulting Provider: Abhishek Eddy Reason for Consultation: [facility] [employer] [facility] as per discussion with Sally Notified:: Service Spoke with:: MENG Date Notified:: 01/16/18 Time Notified:: 08:28 Ordering Provider: VENU 01/16/18 08:51 HUB Only Consult Order Routine Consulting Provider: Raghav Crook 01/16/18 08:58 Consult to Urology Routine Consulting Provider: Edward Figueroa Gis Coordinator:: Edward Figueroa Reason for Consultation: right hydronephrosis, 28 wks , Notified:: Service Spoke with:: TERRANCE Date Notified:: 01/16/18 Time Notified:: 09:27 Ordering Provider: OSEI Brief History from admission: Ms Delatorre is a 22 YO at 27/3 weeks roberts gestation w/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 Patient's pain began Miguel afternoon and was mild until after the patient had dinner and then her symptoms began to worsen acutely. She denied any episodes of vomiting, felt some nausea after eating. Pain is somewhat alleviated by lying on her left side and worsened by lying on her right side. Her first two pregnancies were delivered at term without complications; however, her third was complicated by chest pain and subsequently required delivery at 35 weeks. She was evaluated in the ED and US of abdomen found no gallbladder pathology but did find severe right-sided hydronephrosis. Patient denies diarrhea, no shortness of breath, no other complaints.Pt denies tobacco, EtOH and other drugs. She is due to be followed at [facility] [employer] [facility] as high risk starting next week. Her intake specialist is also at [facility] in [place]. She takes a PNV and daily ASA. She denies SOB, dysuria and leg pain. 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 Family history noncontributory. DS: Summary Mrs. Delatorre is a 22-year-old female. She was admitted secondary to chest pain and right flank pain. Findings of a right-sided hydronephrosis are present. Right-sided hydronephrosis is common in but potentially symptomatic right-sided hydronephrosis warranted more workup. Renal function was monitored and showed no findings of concern for acute kidney injury. No evidence of renal stones though CAT scans could not be obtained. Urinary tract infection was discovered and could be contributory. Patient has had improvement in pain. Neurology visited with this patient and has recommended no acute interventions or further workup at this time. Patient is cleared by obstetrics for discharge. At this point she is medically stable and cleared for discharge to home. Discharge on Macrobid and Probiotics. Follow up with Obstetrics as an outpatient. Time Spent with Patient Total time spent providing and/or coordinating discharge services: Results Labs on day of discharge: Labs from last 24 hours 01/17/18 01/17/18 10:50 10:33 Sodium 141 Potassium 3.9 Chloride 110 H Carbon Dioxide 24.6 Anion Gap 6 BUN 7 Creatinine 0.56 Estimated GFR Greater than 89 Random Glucose 79 Calcium 8.2 L Total Bilirubin 0.1 L AST 8 L ALT 11 Alkaline Phosphatase 97 Total Protein 6.5 Albumin 2.6 L Urine Color Yellow Urine Clarity Hazy H Urine pH 7.0 Ur Specific Agency 1.006 Urine Protein Negative Urine Glucose (UA) Negative Urine Ketones Negative Urine Occult Blood Negative Urine Nitrate Negative Urine Bilirubin Negative Urine Urobilinogen Less than 2 Ur Leukocyte Esterase Large H Urine RBC Less than 1 Urine WBC 61 H Ur Squamous Epith Cells 11 Urine Bacteria Few H Urine Mucus Few H Micro UA Comment Culture indicated Ur Microscopic Review Not Reportable Urine Culture Comments Culture indicated Impressions ITS Impressions Gallbladder Ultrasound 01/15/18 20:12 CONCLUSION: 1. Severe right-sided hydronephrosis. 2. No sonographic evidence for cholelithiasis or acute cholecystitis. Abdomen/Bladder Ultrasound 01/16/18 00:23 CONCLUSION: 1. Severe right hydronephrosis. This is more than typically seen with hydronephrosis associated with related to the gravid uterus impression on the right ureter. 2. Left kidney is within normal limits. Discharge Plan Discharge Disposition Patient Disposition: Discharge Home Discharge Condition Condition: Stable Discharge Order Discharge Orders: Discharge Order (Routine); Ordered 01/17/18 Ordered By: Arpit Malin Discharge Details Anticipated Discharge Date: 01/17/18 Physicians Team Primary Care Provider: Primary Care Monse Jernigan Attending Provider: Arpit Malin Other Providers: Abhishek Eddy ; Edward Figueroa ; Raghav Crook Rxs /Orders / Referrals /Forms Prescriptions: New nitrofurantoin macrocrystal 100 mg capsule 100 mg PO Q6H 5 Days Qty: 20 RF: 0 nitrofurantoin macrocrystal 50 mg capsule 50 mg PO Q6H 5 Days Qty: 20 RF: 0 No Action aspirin [Aspir-81] 81 mg Tablet,Delayed Release (Dr/Ec) 81 mg PO DAILY RF: 0 Referrals: Primary Care Monse Jernigan [Primary Care Provider] - See Instructions Discharge Instructions Patient Printed Instructions: Chest Pain (ED) Status ED Status: Left Department
== END 2018-01-17 16:39 | disposition home or self-care (01) ==
LOC: NEPC 19:04 → NEDA 01-16 01:04 → H2E 01-16 01:33
PROVIDERS: ADMIT Hospitalist; ATTEND Hospitalist
DX: N13.6 Pyonephrosis; Z87.74 Personal history of (corrected) congenital malformations of heart and circulatory system; Z3A.28 28 weeks gestation of pregnancy; O99.89 Other specified diseases and conditions complicating pregnancy, childbirth and the puerperium